=== PATIENT | female | born 1990 | race Caucasian/White ===

== ENCOUNTER 2017-06-14 03:22 | Inpatient (IN) | payer SELFPAY ==
[2017-06-14] VITALS (8 sets, daily range): BP systolic 110–155; BP diastolic 70–115
[~2017-06-14] VITALS: Ht 157.5 cm; Wt 60.6 kg
[2017-06-14 04:34] LABS: BASOPHILS % 1.2 % (0.0-2.0); EOSINOPHILS % 3.5 % (0.0-5.0); HEMATOCRIT. 38.6 % (36.0-48.0); HEMOGLOBIN. 12.9 g/dL (12.0-16.0); LYMPHOCYTES % 18.7 % (20.0-50.0); MEAN CORPUSCULAR HEMOGLOBIN 29.3 pg (28.0-32.0); MEAN CORPUSCULAR VOLUME 87.9 fL (81.0-99.0); MEAN PLATELET VOLUME 7.7 fl (7.4-10.4); MONOCYTES % 5.8 % (2.0-8.0); NEUTROPHILS % 70.8 % (40.0-76.0); PLATELET 344 x1000/uL (130-400); RED BLOOD CELL COUNT 4.39 mill/uL (4.2-5.4); RED CELL DISTRIBUTION WIDTH 15.9 % (11.6-14.6)
[2017-06-14 04:35] LABS: CHLORIDE 100 mEq/L (98-107)
[2017-06-14 04:40] LABS: ETHANOL BLOOD 216 mg/dL; PROTHROMBIN TIME 10.6 sec (9.4-11.6)
[2017-06-14 04:48] LABS: CLARITY URINE CLEAR (CLEAR); COLOR URINE YELLOW (YELLOW); KETONES URINE NEGATIVE (NEGATIVE); LEUKOCYTE ESTERASE URINE NEGATIVE (NEGATIVE); NITRITE URINE NEGATIVE (NEGATIVE); OCCULT BLOOD URINE NEGATIVE (NEGATIVE); PH URINE 6.5 (4.5-8.0); PROTEIN URINE NEGATIVE (NEGATIVE); SPECIFIC GRAVITY URINE 1.013 (1.005-1.030); UROBILINOGEN URINE 0.2 E.U./dL (0.2-1.0)
[2017-06-14 05:27] LABS: *AMPHETAMINES SCREEN URINE NEGATIVE (NEGATIVE); *BARBITURATES SCREEN URINE NEGATIVE (NEGATIVE)
[2017-06-14 05:28] LABS: *BENZODIAZEPINES SCREEN URINE NEGATIVE (NEGATIVE); CANNABINOID URINE SCREEN NEGATIVE (NEGATIVE); METHADONE URINE SCREEN NEGATIVE (NEGATIVE); PHENCYCLIDINE URINE SCREEN NEGATIVE (NEGATIVE)
[2017-06-14 05:34] LABS: *COCAINE SCREEN URINE PRESUMTIVE POSITIVE (NEGATIVE); OPIATES URINE SCREEN PRESUMTIVE POSITIVE (NEGATIVE)
[2017-06-14] MEDS ORDERED: ACETYLCYSTEINE IV NR ×3 (06:00→17:00)
[2017-06-14] MEDS ORDERED: DEXT 5% IV NR ×2 (06:00→08:00)
[2017-06-14] MEDS ORDERED: WATER IV NR ×3 (06:00→17:00)
[2017-06-14] MEDS ORDERED: NA PHOS,M-B/NA PHOS,DI-BA ENEMA 118ML PR PRN (09:00)
[2017-06-14] MEDS ORDERED: LORAZEPAM 0.5MG TABLET PO PRN (09:00)
[2017-06-14] MEDS ORDERED: IPRATROPIUM/ALBUTEROL 0.5-3(2.5)MG/3ML NEB INH PRN (09:00)
[2017-06-14] MEDS ORDERED: MAGNESIUM/ALUMINUM HYDROXIDE/SIMETHICONE 30ML UDC PO PRN (09:00)
[2017-06-14] MEDS ORDERED: CLONIDINE 0.1MG TABLET PO PRN (09:00)
[2017-06-14] MEDS ORDERED: GUAIFENESIN 200MG/10ML SUGAR FREE UDC PO PRN (09:00)
[2017-06-14] MEDS: ONDANSETRON HCL 4MG/2ML VIAL IV PRN ×2 (09:40→14:54)
[2017-06-14] MEDS: FAMOTIDINE 20MG TABLET PO SCH ×2 (10:30→20:32)
[2017-06-14] MEDS ORDERED: HYDR-4094 MT (11:08)
[2017-06-14] MEDS ORDERED: NAPR-681 PO (11:08)
[2017-06-14] MEDS ORDERED: HYDR-4067 PO (11:14)
[2017-06-14] MEDS: DEXT 5%/0.45% NACL 1000ML 1,000 ML IV SCH ×2 (12:56→22:20)
[2017-06-14] MEDS ORDERED: DEXTROSE 5% IV NR (17:00)
[2017-06-14] MEDS ORDERED: ZOLPIDEM TARTRATE 5MG TABLET PO PRN (19:00)
[2017-06-15] VITALS (11 sets, daily range): BP systolic 106–125; BP diastolic 70–88
[2017-06-15 06:35] LABS: CHLORIDE 102 mEq/L (98-107)
[2017-06-15 06:38] LABS: BASOPHILS % 0.5 % (0.0-2.0); EOSINOPHILS % 3.5 % (0.0-5.0); HEMATOCRIT. 35.1 % (36.0-48.0); HEMOGLOBIN. 11.7 g/dL (12.0-16.0); LYMPHOCYTES % 18.7 % (20.0-50.0); MEAN CORPUSCULAR HEMOGLOBIN 29.1 pg (28.0-32.0); MEAN CORPUSCULAR VOLUME 87.4 fL (81.0-99.0); MEAN PLATELET VOLUME 8.3 fl (7.4-10.4); MONOCYTES % 10.3 % (2.0-8.0); PLATELET 288 x1000/uL (130-400); RED BLOOD CELL COUNT 4.01 mill/uL (4.2-5.4); RED CELL DISTRIBUTION WIDTH 15.3 % (11.6-14.6)
[2017-06-15] MEDS ORDERED: POTASSIUM CHLORIDE 20MEQ TABLET SR PO SCH (08:30)
[2017-06-15] MEDS: DEXT 5%/0.45% NACL 1000ML 1,000 ML IV SCH (08:33)
[2017-06-15] MEDS: FAMOTIDINE 20MG TABLET PO SCH (08:34)
[2017-06-15] MEDS ORDERED: POTASSIUM CHLORIDE INJ 40 MEQ in DEXT 5% WATER 250 ML IV SCH (10:00)
[2017-06-15] MEDS ORDERED: FOLIC ACID 1MG TABLET PO SCH (13:00)
[2017-06-15] MEDS ORDERED: MULTIVITAMINS,THER W-MINERALS TABLET PO SCH (13:00)
[2017-06-15] MEDS ORDERED: THIAMINE HCL 100MG TABLET PO SCH (13:00)
== END 2017-06-15 18:40 | disposition home or self-care (01) | DRG 812 ==
LOC: ER 03:22 → 3WST 05:03 → ENRESERV 08:17 → 3WST 10:23
PROVIDERS: ADMIT Internal Medicine; ATTEND Internal Medicine
DX: T39.1X2A Poisoning by 4-Aminophenol derivatives, intentional self-harm, initial encounter (principal); G92 Toxic encephalopathy; F14.10 Cocaine abuse, uncomplicated; R45.851 Suicidal ideations; Y92.89 Other specified places as the place of occurrence of the external cause
CPT/HCPCS: 36415; 80053; 80305; 80307; 80329; 81003; 81025; 82962; 85025; 85610; 93005; 96365; 96375; 99291; G0482; J0132; J2405; J3480; J7050; J7060; J7070

== ENCOUNTER 2018-08-02 19:39 | Emergency (ER) | payer MEDICAID, OTHER ==
[~2018-08-02] VITALS: Ht 154.9 cm; Wt 49.1 kg
[2018-08-02] MEDS ORDERED: KETOROLAC 30MG/ML VIAL IV ONE (20:30)
[2018-08-02 20:42] LABS: HEMATOCRIT. 25.5 % (36.0-48.0); HEMOGLOBIN. 7.8 g/dL (12.0-16.0); MEAN CORPUSCULAR HEMOGLOBIN 22.2 pg (28.0-32.0); MEAN CORPUSCULAR VOLUME 72.1 fL (81.0-99.0); MEAN PLATELET VOLUME 7.9 fl (7.4-10.4); PLATELET 307 x1000/uL (130-400); RED BLOOD CELL COUNT 3.53 mill/uL (4.2-5.4); RED CELL DISTRIBUTION WIDTH 20.6 % (11.6-14.6)
[2018-08-02 20:46] LABS: CHLORIDE 105 mEq/L (98-107)
[2018-08-02 20:47] LABS: PROTHROMBIN TIME 9.9 sec (9.6-11.0)
[2018-08-02 21:00] LABS: PLATELET ESTIMATE NORMAL
[2018-08-02 21:13] LABS: CLARITY URINE TURBID (CLEAR); COLOR URINE YELLOW (YELLOW); KETONES URINE NEGATIVE (NEGATIVE); LEUKOCYTE ESTERASE URINE NEGATIVE (NEGATIVE); NITRITE URINE NEGATIVE (NEGATIVE); OCCULT BLOOD URINE NEGATIVE (NEGATIVE); PROTEIN URINE TRACE (NEGATIVE); SPECIFIC GRAVITY URINE 1.038 (1.005-1.030); UROBILINOGEN URINE 0.2 E.U./dL (0.2-1.0)
[2018-08-02] MEDS ORDERED: ONDANSETRON HCL 4MG/2ML INJ IV ONE (22:30)
[2018-08-02] MEDS ORDERED: SODIUM CHLORIDE 0.9% 500 ML IV ONE (22:30)
[2018-08-02 23:52] VITALS: BP 120/75
== END 2018-08-02 23:49 | disposition home or self-care (01) ==
LOC: ER 19:39
DX: D64.9 Anemia, unspecified (principal); R11.2 Nausea with vomiting, unspecified; K59.00 Constipation, unspecified
CPT/HCPCS: 36415; 76705; 80053; 81003; 81025; 83690; 85025; 85610; 96374; 96375; 99284; J1885; J2405; J7040; Z7610